=== PATIENT | male | born 1995 ===

== ENCOUNTER 2017-12-05 15:43 | Emergency (ER) | payer OTHER ==
--- NOTE | 2017-12-05 16:18 | UC ---
General HPI - HPI Summary HPI Summary: Patient presents to urgent care with his significant other. Patient's a 22-year -old college student. Patient states she's been heavily smoking marijuana daily for several years. Patient states on Saturday he decided to quit cold turkey little healthier life. Patient states since this time he's adamantly having twinges where his lungs feel tight and he has a little bit of burning. Patient states he sensations are brief and occur randomly. He cannot wake him up from sleep. Patient states he does have belching. Patient states he had initially very mild diarrhea that has improved. Pt states previous history of GERD. Patient states he was on Zantac. Patient states he is not taking that currently. Patient denies fevers or chills. No headache. Patient states she just feels very anxious this "something wrong" No trauma Pt was able to play basketball for 45 minutes without difficulty,sob, or chest pain. Pt's medications reviewed this visit - History of Current Complaint Chief Complaint: UCChestPain Stated Complaint: CHEST PAIN Time Seen by Provider: 12/05/17 16:04 Hx Obtained From: Patient Pain Intensity: 4 - Allergy/Home Medications Allergies/Adverse Reactions: Allergies Allergy/AdvReac Type Severity Reaction Status Date / Time No Known Allergies Allergy Verified 12/05/17 16:07 PMH/Surg Hx/FS Hx/Imm Hx Previously Healthy: Yes GI/ History: Gastroesophageal Reflux Psychological History: Anxiety - Surgical History Surgical History: None Surgery Procedure, Year, and Place: denies - Family History Known Family History: Positive: Hypertension - grandfather - Social History Occupation: Student Lives: Dormitory/Roommates Alcohol Use: Occasionally Substance Use Type: Marijuana Substance Use Comment - Amount & Last Used: daily but stopped 12/02/17 Smoking Status (MU): Never Smoked Tobacco Review of Systems Constitutional: Negative Cardiovascular: Chest Pain - chest burning All Other Systems Reviewed And Are Negative: Yes Physical Exam - Summary Physical Exam Summary: Vital Signs Reviewed: Yes A+Ox3, no distress Eyes: Conjunctiva Clear, SINTIA. EOM intact and full ENT: Hearing grossly normal TM x 2 clear, mmoist, uvula midline, no exudate, no erythema Neck: Positive: Supple Respiratory: Positive: No respiratory distress, No accessory muscle use + CTA throughout no w/r + BS throughout no increased WOB no retractions speaking full easy sentence Cardiovascular: RRR nl s1, s2 no m/r CBT <2 sec no reproducible pain abd soft mild epigastric pain no guarding, no rebound soft + BS no distension Musculoskeletal Exam: MARADIAGA x 4 without difficulty Strength Intact, ROM Intact Neurological: Positive: Alert, + sensation throughout Psychological: Positive: Normal Response To Family Skin: Positive: no rash, no ecchymosis Triage Information Reviewed: Yes Vital Signs: Initial Vital Signs Temp 97.9 F 12/05/17 16:03 Pulse 110 12/05/17 16:03 Resp 20 12/05/17 16:03 BP 168/102 12/05/17 16:03 Pulse Ox 100 12/05/17 16:03 Diagnostics - Radiology No standard instances Radiology Interpretation Completed By: Radiologist - Patient Name: ZHANNA MORTENSEN Medical Record#: [id number] Ordering Physician: Kiara Martin MD Acct.#: [id number] : 1995 Age: 22 Sex: M Location: [facility] Exam Date: 12/05/17 163 ADM Status: REG ER Order Information: CHEST PA & LAT 2 VWS Accession Number: [id number] CPT: 38736 INDICATION: Anterior lower chest pain COMPARISON: None TECHNIQUE: PA and lateral views of the chest were obtained. FINDINGS: The heart and mediastinum are normal in size and contour. The lungs are grossly clear. There is no evidence of large pleural effusion. Visualized bones are normal for the patient's age. There is no radiographic evidence of free air beneath the diaphragm IMPRESSION: No radiographic evidence of acute cardiopulmonary disease. <Electronically signed by Enio Cool MD in OV> 12/05/171701 Dictated By: Enio Cool MD Dictated Date/Time: 12/05/171701 Transcribed Date/Time: 01/12 Copy to: CC:Kiara Martin MD; No Primary Care Phys,NOPCP Imaging - [facility] [place] [facility] [address] [facility] [address] [id number] ph ([phone]) ph ([phone]) ph ([phone]) This report is only to be considered final once signed by the Provider(s) as displayed in the "<Electronically Signed by >" field (s). Absence of a signature indicates the report is in a draft status and still needs to be finalized. In the event this document was created by someone other than the signing Provider, the individual initiating the document will be listed in the "Entered by:" or "Dictated by:" garcia. 1 of 1 - EKG Cardiac Rate: NL Cardiac Rhythm: Sinus: Normal - borderline tachy ST Segment: Normal EKG Comparison: No Significant Change Re-Evaluation - Re-Evaluation First Eval Change: Improved - sx completely resolved with GI cocktail cxr review pt states relief reassurance goven f/u with [place] return precautions pt Rx zantac pt declined offer to talk with parents comfort and agreement with plan Course/Dx - Course Course Of Treatment: Patient presents reporting he quit smoking marijuana culture given his past history. Patient states he's been a heavy smoker for 2 years. Patient states he's been intermittently having these sharp twinges epigastric and in his chest. Patient states it feels tight when it happens. Patient has been belching. Patient had diarrhea that has resolved. Patient has not taken anything for this pain. Patient was able to play basketball for 45 minutes without difficulty. No shortness of breath. Patient states he's had been very anxious has "something with his heart. "Patient without any other complaints. On exam patient's vitals noted a mild markedly elevated blood pressure as well as heart rate. Patient is visibly anxious. After talking him reassurance patient's heart rate was much improved at the time of evaluation with a heart rate less than 100. EKG was sinus without any acute ST- T wave changes. We will give a GI cocktail and check chest chest x-ray. - Differential Dx - Multi-Symptom Provider Diagnoses: GERD. epgastric pain Discharge - Sign-Out/Discharge Documenting (check all that apply): Post-Discharge Follow Up All imaging exams completed and their final reports reviewed: Yes - Discharge Plan Condition: Stable Disposition: HOME Prescriptions: raNITIdine HCl [Zantac] 150 mg PO DAILY #30 tablet Patient Education Materials: Gastroesophageal Reflux Disease (ED) Referrals: [facility] [Outside] No Primary Care Phys,NOPCP [Primary Care Provider] - Additional Instructions: The doctor that evaluated today thinks that your symptoms are related to both overproduction of some stomach acid as well as some mild withdrawal effects from ears recent abstinence. It's recommended that she eat small, frequent doses several times a day. Okay to take Maalox or Tums for burning. Resume taking his Zantac as previously prescribed. Stay well hydrated. Drink plenty drink plenty of nonalcoholic, non-caffeinated beverages. Do not lay down for at least one hour after eating. Contact him and help to schedule follow-up appointment next week. If your have any other additional concerns is recommended to emergency department for further evaluation and treatment. - Billing Disposition and Condition Condition: STABLE Disposition: Home
[2017-12-05] MEDS ORDERED: Al Hydrox/Mg Hydrox/Simet LIQ* 30 ML UDC PO ONE (16:37)
--- NOTE | 2017-12-05 17:06 | RAD ---
INDICATION: Anterior lower chest pain COMPARISON: None TECHNIQUE: PA and lateral views of the chest were obtained. FINDINGS: The heart and mediastinum are normal in size and contour. The lungs are grossly clear. There is no evidence of large pleural effusion. Visualized bones are normal for the patient's age. There is no radiographic evidence of free air beneath the diaphragm IMPRESSION: No radiographic evidence of acute cardiopulmonary disease.
== END 2017-12-05 17:40 | disposition home or self-care (01) ==
LOC: UCEAST 15:43
DX: K21.9 Gastro-esophageal reflux disease without esophagitis (principal); R10.13 Epigastric pain; R00.0 Tachycardia, unspecified
CPT/HCPCS: 71046; 93005; 99202; A9270-GY; G0463